=== PATIENT | female | born 1965 | race Caucasian/White ===

== ENCOUNTER 2020-04-02 11:04 | Day surgery (SDC) | payer OTHER, MEDICAID, SELFPAY ==
--- NOTE | 2020-04-02 | PATH_ITS ---
[facility] Accession Number: [id number] . 01 Material submitted: . rectum - RECTAL POLYP . 02 Diagnosis: Rectum, Polyp, Biopsy: Hyperplastic polyp. MRV 04/06/2020 1509 Local . 02 Electronically signed: . Lizet Sharif MD, Pathologist NPI- [id number] . 01 Gross description: . The specimen is received in formalin, labeled rectal polyp and consists of two walker-white fragments of soft tissue, measuring 0.5 x 0.4 x 0.2 cm in aggregate. The specimen is entirely submitted in cassette A1. ([id number]) /[facility] 04/03/2020 1528 Local . 02 Pathologist provided ICD-10: K63.5 . 02 CPT . 516322 Performed at: 01 [facility] [address] [id number] MD Enrique Greenwood MD Phone: [phone] Performed at: 02 [facility] [address] [address] [place], [place] [id number] MD Lizet Sharif MD Phone: [phone]
[2020-04-02 11:40] LABS: COVID19 -Nasal RAPID Negative (Negative)
[2020-04-02 13:11] VITALS: BP 134/85; PULSE 95; RESP 19; TEMP 35.8; O2SAT 95; BMI 49.1
[2020-04-02] MEDS: LACTATED RINGERS 1,000 ML 200 ML IV (13:21)
--- NOTE | 2020-04-02 13:48 | PM.HP.1 ---
History of Present Illness History of Present Illness Date Patient Seen: 04/02/20 Time Patient Seen: 13:48 Chief complaint: SDC Narrative: The patient presents for colorectal sreening. They have never had any previous examination for such. No personal or family history of colon cancer. On further history denies any recent gastrointestinal symptoms. No nausea, vomiting, abdominal pain, loss of appetite, unexplained weight loss, change in bowel habits, diarrhea, constipation, melena, hematochezia, or bright red blood per rectum. Patient History Medical History Diabetes (Acute) Morbid obesity (Acute) Surgical History Hx laparoscopic cholecystectomy (Acute) Family & Social History Social History: household members friend(s) Tobacco & Substance use: Smoking Status Former smoker alcohol intake former Substance Use Type does not use Meds Home Medications and Allergies Home Medications Medication Instructions Recorded Confirmed Type Ranitidine Hydrochloride 150 mg PO BID #0 12/31/11 04/02/20 History (RANITIDINE) atorvastatin 40 mg PO QPM 04/02/20 04/02/20 History gabapentin 1,600 mg PO BID 04/02/20 04/02/20 History insulin glargine [Lantus Solostar 27 unit SUBCUT QPM 04/02/20 04/02/20 History U-100 Insulin] metformin 1,000 mg PO BID 04/02/20 04/02/20 History omeprazole 20 mg PO DAILY 04/02/20 04/02/20 History quetiapine [Seroquel] 200 mg PO DAILY 04/02/20 04/02/20 History Allergies Allergy/AdvReac Type Severity Reaction Status Date / Time No Known Drug Allergies Allergy Verified 04/02/20 13:05 Review of Systems Review of Systems Narrative: A 10 point review of systems is negative except as noted in the HPI Exam Vital Signs (past 8 hours): - 04/02/20 13:11 Temperature 96.5 F L Pulse Rate 95 H Respiratory Rate 19 Blood Pressure 134/85 Pulse Oximetry 95 Oxygen Delivery Method Room Air Narrative Exam Narrative: General-no acute distress, morbidly obese female HEENT-moist mucous membranes, no scleral icterus Neck-supple, no lymphadenopathy Chest- non labored respirations, clear to auscultation bilaterally Cardiac-regular rate no peripheral edema Abdomen-soft, nontender, non distended Extremities-warm, well perfused Neurological-alert and oriented, no focal deficits Objective Labs Labs: Laboratory Results - last 24 hr 04/02/20 11:25 COVID-19 PCR Negative Assessment & Plan Assessment & Plan narrative: The patient requires colorectal screening and colonoscopy is recommended. Technical details were discussed. Risks, benefits, alternatives explained. Risks including but not limited to myocardial infarction, aspiration, bleeding, pain, missed lesion, incomplete examination, need for further radiographic studies, colonic perforation, and need for major abdominal surgery were discussed. All questions were answered to their satisfaction, and they are in agreement with this plan.
[2020-04-02] MEDS: MIDAZOLAM 5 MG/5 ML VIAL IV (14:14)
[2020-04-02] MEDS: fentaNYL 250 MCG/5 ML INJ IV (14:14)
[2020-04-02 14:28] VITALS: BP 149/85; PULSE 97; RESP 18; TEMP 36.1; O2SAT 92
--- NOTE | 2020-04-02 14:28 | PM.OP.ENDO ---
Operative Date/Time/Diagnoses Date of procedure: 04/02/20 Time of procedure: 14:29 Pre-op diagnosis: Screening colonoscopy Post-op diagnosis: same Procedure & Clinicians Study performed: Colonoscopy Same procedure as scheduled: Yes Indications: 54-year-old woman here for routine screening colonoscopy Surgeon: Roberto Carlos Field Procedure Notes SCOAP/Timeout: Performed Procedure in detail: Patient placed in left lateral recumbent position. Time out was performed. Procedural sedation was administered with Versed and Fentanyl. Examination began with a thorough inspection of the perianal area there was no evidence of fissures, fistulae, external hemorrhoids or cutaneous malignancy. The colonoscopy scope was then placed into the rectum the the lumen was insufflated with air. The scope was carefully advanced forward. Ultimately the cecum was intubated and confirmed by identification of the ileocecal valve, the appendiceal orifice and the confluence of the taenia. The scope was then slowly withdrawn examining colon thoroughly in all directions. In the rectum the rectal columns were identified and retroflexion of the scope was performed for inspection of the distal rectum and anal canal. The colonoscopy was notable for the followin. Quality of the preparation-fair 2. 5 mm rectal polyp removed with biopsy forceps Scope withdrawal time: 6 Sedation minutes: 30 Specimen(s): none sent Complications: none Impression: Polyp Post-procedure Recommendations: Colonscopy in 5 years Disposition: same day surgery
[2020-04-02 14:33] VITALS: BP 115/79; PULSE 98; RESP 22; O2SAT 93
[2020-04-02 14:38] VITALS: BP 129/80; PULSE 98; RESP 20; O2SAT 91
[2020-04-02 14:43] VITALS: BP 128/70; PULSE 94; RESP 16; TEMP 36.3; O2SAT 92
[2020-04-02 15:00] VITALS: BP 113/86; PULSE 93; RESP 20; TEMP 36.6; O2SAT 94
== END 2020-04-02 15:11 | disposition home or self-care (01) ==
PROVIDERS: PCP Registered Nurse; Referring Provider Surgery; Visit Provider Surgery
PROC: 0DJD8ZZ Inspection of Lower Intestinal Tract, Via Natural or Artificial Opening Endoscopic (ICD-10-PCS; CPT 45378; principal; 2020-04-02 13:45)
DX: Z12.11 Encounter for screening for malignant neoplasm of colon (principal); E11.9 Type 2 diabetes mellitus without complications; E66.01 Morbid (severe) obesity due to excess calories; Z11.59 Encounter for screening for other viral diseases; K63.5 Polyp of colon
CPT/HCPCS: 45380; 87635; 99152; 99153; J2250; J3010

== ENCOUNTER → 2023-07-25 10:09 | Outpatient (CLI) | payer OTHER, MEDICAID, SELFPAY ==
--- NOTE | 2023-07-25 | DI.RAD.S_ITS ---
PROCEDURE: FL JOINT INJECTION LARGE LT INDICATIONS: Unilateral primary osteoarthritis, left hip COMPARISON: [facility], CR, XR PELVIS WITH LATERAL HIP LEFT, 07/28/2021, 17:11. [facility], CR, XR KNEE 1 OR 2 VIEWS RIGHT, 11/17/2021, 12:26. TECHNIQUE: The indications, alternatives, benefits, risks, and complications of the procedure were explained to the patient. Written informed consent was obtained and placed in the chart. The patient was placed in an appropriate position on the fluoroscopy table, and a site was chosen for percutaneous access under fluoroscopic guidance. The site was prepped and draped in a sterile fashion. Local anesthetic was administered using a 1% lidocaine solution. A hypodermic or spinal needle was then used to access the symptomatic joint. Intra-articular location of the needle tip was confirmed by injecting a small amount of contrast, followed by steroid administration. The needle was then withdrawn, and a bandage applied to the puncture site. FINDINGS: Joint injected: Left hip Medications injected: 4 mL of 40 mg/mL Kenalog and 0.5% Ropivacaine mixture. Patient's pain before injection: 7 out of 10. Patient's pain after injection: 0 out of 10. Complications: None. IMPRESSION: Successful fluoroscopically guided administration of steroid and anaesthetic solution into the left hip joint. Dictated by: Enoc Kim M.D. on 07/25/2023 at 12:44 Approved by: Enoc Kim M.D. on 07/25/2023 at 12:45
[2023-07-25] MEDS: LIDOCAINE 1% 20 ML INJ (11:52)
[2023-07-25] MEDS: ROPIVACAINE 0.5% PF 5 MG/ML 20ML VIAL 20 ML INJ (11:52)
[2023-07-25] MEDS: TRIAMCINOLONE 40 MG/ML VIAL INTRA-ARTI (11:52)
== END ==
LOC: RAD 10:09
PROVIDERS: PCP Registered Nurse; Referring Provider Physician Assistant Surgical; Visit Provider Physician Assistant Surgical
DX: M16.12 Unilateral primary osteoarthritis, left hip (principal)
CPT/HCPCS: 20610; 77002

== ENCOUNTER 2024-03-27 11:43 | Emergency (ER) | payer OTHER, MEDICAID, SELFPAY ==
[2024-03-27 12:01] VITALS: BP 129/69; PULSE 78; RESP 16; TEMP 36.7; O2SAT 100; BMI 42.3
--- NOTE | 2024-03-27 12:03 | PC.NURSE ---
Pt reports red bumps on chin. Pt states she has been stressed lately and eating lots of chocolate and coffee. Pt reports shingles outbreak last month and was resolved w/ rx medications. Pt asking if she can have refill of medications to help with her current outbreak. Pt states the wounds burn and itch. No oral, mucous membrane or eye involvement noted. Respirations regular and unlabored.
--- NOTE | 2024-03-27 12:09 | ED.SKABFB ---
HPI - Skin/Abscess/Foreign Bdy <Lizet Katz PA-C - Last Filed: 03/27/24 12:14> General Chief complaint: Skin/Abscess/Foreign Body Stated complaint: shingles outbreak Time Seen by Provider: 03/27/24 11:57 History of Present Illness HPI narrative: Patient is a pleasant 58-year-old female presents to the emergency department today complaining of reactivation shingles. Patient was seen at 1 of the local emergency room department on 02/13/2024, she was diagnosed with shingles on the left side of her chest underneath her breast. She was prescribed multiple medications, she took the medications to completion and the shingles resolved. She now presents to the emergency department with a reactivation of shingles on the left side of her chin. It has been ongoing for several days. She is unable to get into her primary care doctor. The area is red, multiple small vesicles that have now opened up and drained, the pain is burning, itchy, extremely painful. Currently along the left side of her lower jaw, no eye involvement, no other physical complaints. Patient is here requesting refill of the medications that she received when she initially had her 1st episode of shingles outbreak on 02/13/2024. Related Data Home Medications Medication Instructions Recorded Confirmed Ranitidine Hydrochloride 150 mg PO BID ##0 12/31/11 04/02/20 (RANITIDINE) atorvastatin 20 mg tablet 40 mg PO QPM 04/02/20 04/02/20 gabapentin 800 mg tablet 1,600 mg PO BID 04/02/20 04/02/20 insulin glargine 100 unit/mL (3 27 unit SUBCUT QPM 04/02/20 04/02/20 mL) subcutaneous pen (Lantus Solostar U-100 Insulin) metformin 500 mg tablet 1,000 mg PO BID 04/02/20 04/02/20 omeprazole 20 mg capsule,delayed 20 mg PO DAILY 04/02/20 04/02/20 release quetiapine 200 mg tablet (Seroquel) 200 mg PO DAILY 04/02/20 04/02/20 Previous Rx's Medication Instructions Recorded hydrocodone 5 mg-acetaminophen 325 1 tab PO Q6H PRN pain #10 tabs 03/27/24 mg tablet prednisone 20 mg tablet See Rx Instructions .Route 03/27/24 .COMPLEX #20 tabs valacyclovir 1 gram tablet 1,000 mg PO TID #21 tabs 03/27/24 (Valtrex) Allergies Allergy/AdvReac Type Severity Reaction Status Date / Time No Known Drug Allergies Allergy Verified 03/27/24 12:01 Review of Systems <Lizet Katz PA-C - Last Filed: 03/27/24 12:14> Review of Systems Narrative: Negative except as above Allergic/Immunologic Comments: Patient is having a reactivation shingles they are now on the left lower jaw, no ocular involvement. Patient History <Lizet Katz PA-C - Last Filed: 03/27/24 12:14> Medical History Diabetes Morbid obesity Surgical History Hx laparoscopic cholecystectomy Social History household members: friend(s) Smoking Status: Former smoker alcohol intake: former Smoking Status: Former smoker Substance Use Type: does not use Exam <Lizet Katz PA-C - Last Filed: 03/27/24 12:14> Initial Vital Signs Initial Vital Signs: Vital Signs Temperature 98.1 F 03/27/24 12:01 Pulse Rate 78 03/27/24 12:01 Respiratory Rate 16 03/27/24 12:01 Blood Pressure 129/69 03/27/24 12:01 Pulse Oximetry 100 03/27/24 12:01 Oxygen Delivery Method Room Air 03/27/24 12:01 Reviewed Const General: cooperative, healthy appearing, comfortable, well developed, well groomed, No acute distress, No in distress and No anxious Nutritional Appearance: obese Eyes General: Yes appearance normal, both eyes and all related structures Sclera: sclerae normal Cornea: corneas normal Pupils: PERRL EOM: EOM intact bilaterally Skin Other: Patient has not area on the lower left jaw, red, irritated, she currently does not have any vesicles, she stated that she had vesicles, that had serosanguineous yellow fluid in them, she is itched them, they now are no longer there, she has redness and vesicle like areas up the left jaw, no eye involvement, no areas that look like they are infected or have surrounding cellulitis. She is got some minor areas on the midline of her chin. Neuro Other: Cranial nerves are grossly intact, speech is intact, cognition is intact, gait is intact. Extrem Other: Range of motion, strength, pulses, cap refill preserved in the upper and lower extremities. Psych Other: Appearance, mental status, speech, movement, mood, affect, attitude, thought process, thought content, judgment are all within normal limits. <Leticia Blanchard MD - Last Filed: 03/28/24 07:16> Initial Vital Signs Initial Vital Signs: Vital Signs Temperature 98.1 F 03/27/24 12:01 Pulse Rate 78 03/27/24 12:01 Respiratory Rate 16 03/27/24 12:01 Blood Pressure 129/69 03/27/24 12:01 Pulse Oximetry 100 03/27/24 12:01 Oxygen Delivery Method Room Air 03/27/24 12:01 Scores <Lizet Katz PA-C - Last Filed: 03/27/24 12:14> GCS Citation: 15 Course <Lizet Katz PA-C - Last Filed: 03/27/24 12:14> Vital Signs Vital signs: Vital Signs - 8 hr 03/27/24 12:01 Temperature 98.1 F Pulse Rate 78 Respiratory Rate 16 Blood Pressure 129/69 Pulse Oximetry 100 Oxygen Delivery Method Room Air <Leticia Blanchard MD - Last Filed: 03/28/24 07:16> Vital Signs Vital signs: Vital Signs - 8 hr 03/27/24 12:01 Temperature 98.1 F Pulse Rate 78 Respiratory Rate 16 Blood Pressure 129/69 Pulse Oximetry 100 Oxygen Delivery Method Room Air MDM - Skin/Abscess/Foreign Bdy <Lizet Katz PA-C - Last Filed: 03/27/24 12:14> MDM Narrative Medical decision making narrative: 58-year-old female previous history of shingles, reactivation of her shingles, here requesting a refill of the medications that she was prescribed on 02/13/2024. Initially her shingles were on the left chest underneath her left breast. The shingles she now has oz on the left side of her jaw. No ocular involvement. Ongoing for the past several days. Describes it as a sharp burning itchy severe pain to the left outer facial area. No signs of cellulitis or infection. No other further complaints. Medications are refilled and sent to her pharmacy. Supportive therapy, education given about shingles. Differential diagnosis; reactivation of the shingles now on her face. Discharge Plan Departure Patient Disposition: Home Clinical Impression: Shingles outbreak Qualifiers: Herpes zoster complications: without complications Qualified Code(s): B02.9 - Zoster without complications Activity Restrictions/Additional Instructions: Stay away from chocolate Stay away from coffee Please try not to scratch her face or touch her face Keep her hands clean Take the medications as prescribed Consider the shingles shot you need to be well healed from the shingles outbreak there currently having Plenty of rest Balanced diet Plenty of water Consider B12 Zinc Magnesium D3 Consider lysine helps with this do not take too much of this it can cause kidney stones do not take more than 1500 mg a day and drink plenty plenty of water if you decide to take this amino acid Follow up with her primary care doctor please make an appointment Prescriptions: New prednisone 20 mg tablet See Rx Instructions .ROUTE .COMPLEX Qty: 20 0RF Rx Instructions: 60 mg daily for 4 days then 40 mg for 3 days, then 20 mg for 2 days valacyclovir [Valtrex] 1 gram tablet 1,000 mg PO TID Qty: 21 0RF hydrocodone-acetaminophen 5-325 mg tablet 1 tab PO Q6H PRN (Reason: pain) Qty: 10 0RF No Action Ranitidine Hydrochloride (RANITIDINE) 150 mg PO BID Qty: 0 metformin 500 mg Tablet 1,000 mg PO BID atorvastatin 20 mg Tablet 40 mg PO QPM quetiapine [Seroquel] 200 mg Tablet 200 mg PO DAILY Rx Instructions: 300mg at night gabapentin 800 mg Tablet 1,600 mg PO BID Lantus Solostar U-100 Insulin 100 unit/mL (3 mL) Insulin Pen 27 unit SUBCUT QPM omeprazole 20 mg Capsule,Delayed Release(Dr/Ec) 20 mg PO DAILY Referrals: Yessi Horowitz FNP-C [Primary Care Provider] - Stand Alone Forms: Patient Portal/API ED Sign-out <Leticia Blanchard MD - Last Filed: 03/28/24 07:16> Cosign ED Attending Cosignature Attestation: I was immediately available in the department for consultation throughout this patient's visit. Leticia Blanchard MD
[2024-03-27 12:17] VITALS: RESP 16
== END 2024-03-27 12:17 | disposition home or self-care (01) ==
PROVIDERS: Emergency Provider Physician Assistant; PCP Registered Nurse
DX: B02.9 Zoster without complications (principal)
CPT/HCPCS: 99281

== ENCOUNTER 2024-04-14 19:14 | Emergency (ER) | payer OTHER, MEDICAID, SELFPAY ==
[2024-04-14] VITALS (9 sets, daily range): BP systolic 110–135; BP diastolic 59–78; PULSE 100–114; RESP 18–22; TEMP 37.8–38.2; O2SAT 94–96; BMI 42.3
--- NOTE | 2024-04-14 19:54 | ED_ITS ---
HPI - Headache General Chief Complaint: Upper Respiratory Symptoms Stated Complaint: shingles in throat Time Seen by Provider: 04/14/24 19:48 Mode of arrival: Wheelchair History of Present Illness HPI Narrative: Patient is a 58-year-old female history of hyperlipidemia hypertension comes into the ED from home for flu-like symptoms. She states that she has been suffering from multiple outbreaks of shingles over the past several months. States that she just completed her last dose of valacyclovir. States that she is having persistent sore throat also complaining of headache and muscle pains. She denies any visual disturbances chest pain shortness breath fever chills nausea vomiting abdominal pain or any other GI/ symptoms time. States that she believes she still has some lesions within her oropharynx however states that the lesions on her arms and face have improved/gone away. Related Data Home Medications Medication Instructions Recorded Confirmed Ranitidine Hydrochloride 150 mg PO BID ##0 12/31/11 04/02/20 (RANITIDINE) atorvastatin 20 mg tablet 40 mg PO QPM 04/02/20 04/02/20 gabapentin 800 mg tablet 1,600 mg PO BID 04/02/20 04/02/20 insulin glargine 100 unit/mL (3 27 unit SUBCUT QPM 04/02/20 04/02/20 mL) subcutaneous pen (Lantus Solostar U-100 Insulin) metformin 500 mg tablet 1,000 mg PO BID 04/02/20 04/02/20 omeprazole 20 mg capsule,delayed 20 mg PO DAILY 04/02/20 04/02/20 release quetiapine 200 mg tablet (Seroquel) 200 mg PO DAILY 04/02/20 04/02/20 Previous Rx's Medication Instructions Recorded hydrocodone 5 mg-acetaminophen 325 1 tab PO Q6H PRN pain #10 tabs 03/27/24 mg tablet prednisone 20 mg tablet See Rx Instructions .Route 03/27/24 .COMPLEX #20 tabs valacyclovir 1 gram tablet 1,000 mg PO TID #21 tabs 03/27/24 (Valtrex) amoxicillin 875 mg-potassium 1 tab PO BID 10 days #20 tabs 04/14/24 clavulanate 125 mg tablet valacyclovir 1 gram tablet 1,000 mg PO TID 7 days #21 tabs 04/14/24 Allergies Allergy/AdvReac Type Severity Reaction Status Date / Time No Known Drug Allergies Allergy Verified 03/27/24 12:01 Review of Systems Review of Systems Narrative: General: Positive myalgias, Denies fever, chills, weight loss HEENT: Positive sore throat, Denies headache, eye drainage, eye irritation, head trauma, voice change Cardiovascular: Denies any chest pain, palpitations, shortness of breath, tachycardia Respiratory: Denies any shortness of breath, cough, wheeze, stridor GI/: Denies any abdominal pain, nausea, vomiting, diarrhea, bright red blood per rectum, melanotic stools, urinary frequency, urinary retention, dysuria, hematuria MSK: Denies any joint pain, muscle pains, swelling Skin: Denies any rashes, lesions, discoloration Neuro: Denies any headache, lightheadedness, dizziness, fainting, weakness Psych: Denies SI/HI Patient History Medical History (Updated 04/14/24 @ 21:22 by Jose Maria Barksdale DO) Diabetes Morbid obesity Surgical History Hx laparoscopic cholecystectomy Social History household members: friend(s) Smoking Status: Former smoker alcohol intake: former Smoking Status: Former smoker Substance Use Type: does not use Exam Initial Vital Signs Initial Vital Signs: Vital Signs Pulse Rate 114 H 04/14/24 19:23 Pulse Oximetry 94 04/14/24 19:23 Course Orders Ordered: ED Orders 04/14/24 20:14 BMP [Basic Metabolic Panel] Stat CBC No Diff [Complete Blood Count NO DIFF] Stat 04/14/24 20:22 Covid-19 + FLU A/B + RSV - PCR Stat Strep Grp A by PCR Rapid Stat Discontinued Medications Acetaminophen (Acetaminophen 325 Mg Tablet) 650 mg PO NOW ONE Stop: 04/14/24 19:57 Last Admin: 04/14/24 20:07 Dose: 650 mg Documented By: ARTUR Amoxicillin/Clavulanate Potassium (Amoxicillin/Clav 875/125 Mg) 1 tab PO NOW ONE Stop: 04/14/24 20:44 Last Admin: 04/14/24 20:47 Dose: 1 tab Documented By: ARTRU Diphenhydramine HCl (Diphenhydramine 50 Mg/Ml Vial) 25 mg IV NOW ONE Stop: 04/14/24 19:56 Last Admin: 04/14/24 20:08 Dose: 25 mg Documented By: ARTUR Sodium Chloride (Normal Saline 0.9%) 1,000 mls @ 1,000 mls/hr IV BOLUS ONE Stop: 04/14/24 20:55 Last Admin: 04/14/24 20:10 Dose: 1,000 mls/hr Documented By: ARTUR Ketorolac Tromethamine (Ketorolac 30 Mg/Ml Vial) 15 mg IV NOW ONE Stop: 04/14/24 19:56 Last Admin: 04/14/24 20:09 Dose: 15 mg Documented By: ARTUR Metoclopramide HCl (Metoclopramide 10 Mg/2 Ml Inj) 10 mg IV NOW ONE Stop: 04/14/24 19:56 Last Admin: 04/14/24 20:11 Dose: 10 mg Documented By: ARTUR Vital Signs Vital signs: Vital Signs - 8 hr 04/14/24 19:23 04/14/24 19:24 04/14/24 19:24 Temperature Pulse Rate 114 H 114 H Respiratory Rate Blood Pressure 135/78 Pulse Oximetry 94 94 Oxygen Delivery Method 04/14/24 19:30 04/14/24 19:30 04/14/24 19:32 Temperature 100.7 F H Pulse Rate 110 H 114 H Respiratory Rate 22 Blood Pressure 112/59 L 135/78 Pulse Oximetry 94 94 Oxygen Delivery Method Room Air 04/14/24 20:31 04/14/24 20:32 04/14/24 20:32 Temperature Pulse Rate 109 H 107 H Respiratory Rate Blood Pressure 125/62 Pulse Oximetry 95 95 Oxygen Delivery Method Room Air MDM - Headache Differential Diagnosis Differential diagnosis: Likely other (Tension type headache, strep throat, shingles, electrolyte abnormality) Lab Data 04/14/24 20:14 04/14/24 20:14 Labs: Lab Results 04/14/24 04/14/24 Range/Units 20:14 20:22 WBC 9.9 (4.5-11.0) X10^3/uL RBC 4.07 (4.0-5.2) X10^6/uL Hgb 11.8 L (12.0-16.0) g/dL Hct 35.4 L (36-46) % MCV 87.0 (80-100) fL MCH 29.0 (26-34) PG MCHC 33.3 (30-36) % RDW 15.9 H (11.6-14.8) % Plt Count 125 L (150-400) X10^3/uL Sodium 128 L (137-145) mmol/L Potassium 4.4 (3.4-5.1) mmol/L Chloride 94 L (98-107) mmol/L Carbon Dioxide 26 (22-32) mmol/L BUN 18 H (7-17) mg/dL Creatinine 0.70 (0.52-1.04) mg/dL Estimated GFR > 60 (>60) mL/min BUN/Creatinine Ratio 25.7 H (6-22) Glucose 367 H (70-100) mg/dL Calcium 9.1 (8.4-10.2) mg/dL SARS-CoV-2 (PCR) Negative (Negative) Influenza A (RT-PCR) Flu a negative (NEGATIVE) Influenza B (RT-PCR) Flu b negative (NEGATIVE) RSV (PCR) Negative (Negative) Group A Strep (PCR) Positive H (Negative) MDM Narrative Medical decision making narrative: Patient is a 58-year-old female history of hypertension hyperlipidemia recent shingles outbreak presents to the ED for multiple complaints. She states that she feels like her shingles rash still has not gotten any better, states that she feels like it is still in the back of her throat, states that she is also having worsening sore throat. Muscle stating that she is having intermittent headaches associated with this pain. But denies any focal deficits denies any visual disturbances. Patient lab work unremarkable here she was noted to be febrile which she defervesce after given medication here, strep throat positive 1st dose of medications was given here sent home with remaining antibiotics. She is also requesting additional doses of her valacyclovir, because she believes her shingles still have not resolved therefore will prescribe her a prescription for this. I instructed her to follow up with primary care doctor and dermatology in an outpatient setting. She verbalized understanding of this she was given strict return precautions she is safe for discharge home with outpatient follow up Discharge Plan Departure Patient Disposition: Home Clinical Impression: Strep throat Activity Restrictions/Additional Instructions: Please read the discharge instructions sheet carefully and bring all papers to all doctor follow-up visits, as it may contain information that your doctor may want to see. Disease processes change and evolve, if your symptoms worsen or if you develop any new symptoms that are concerning to you please return for evaluation. Your evaluation today does not show any evidence of any life- threatening/serious illnesses requiring admission to the hospital or surgery. Please follow-up with your doctor for re-evaluation in approximately 1 day. Seek immediate medical attention for any worrisome symptoms. Prescriptions: New amoxicillin-pot clavulanate 875-125 mg tablet 1 tab PO BID 10 Days Qty: 20 0RF valacyclovir 1 gram tablet 1,000 mg PO TID 7 Days Qty: 21 0RF No Action Ranitidine Hydrochloride (RANITIDINE) 150 mg PO BID Qty: 0 prednisone 20 mg tablet See Rx Instructions .ROUTE .COMPLEX Qty: 20 0RF Rx Instructions: 60 mg daily for 4 days then 40 mg for 3 days, then 20 mg for 2 days valacyclovir [Valtrex] 1 gram tablet 1,000 mg PO TID Qty: 21 0RF hydrocodone-acetaminophen 5-325 mg tablet 1 tab PO Q6H PRN (Reason: pain) Qty: 10 0RF metformin 500 mg Tablet 1,000 mg PO BID atorvastatin 20 mg Tablet 40 mg PO QPM quetiapine [Seroquel] 200 mg Tablet 200 mg PO DAILY Rx Instructions: 300mg at night gabapentin 800 mg Tablet 1,600 mg PO BID Lantus Solostar U-100 Insulin 100 unit/mL (3 mL) Insulin Pen 27 unit SUBCUT QPM omeprazole 20 mg Capsule,Delayed Release(Dr/Ec) 20 mg PO DAILY Referrals: Yessi Horowitz FNP-C [Primary Care Provider] - Stand Alone Forms: Patient Portal/API/Survey
[2024-04-14] MEDS: ACETAMINOPHEN 325 MG TABLET 650 MG PO (20:07)
[2024-04-14] MEDS: diphenhydrAMINE 50 MG/ML VIAL 25 MG IV (20:08)
[2024-04-14] MEDS: KETOROLAC 30 MG/ML VIAL 15 MG IV (20:09)
[2024-04-14] MEDS: SODIUM CHLORIDE 0.9% 1,000 ML 1000 ML IV (20:10)
[2024-04-14] MEDS: METOCLOPRAMIDE 10 MG/2 ML INJ IV (20:11)
[2024-04-14 20:23] LABS: Hematocrit 35.4 % (36-46); Hemoglobin 11.8 g/dL (12.0-16.0); Mean Corpuscular HGB Conc 33.3 % (30-36); Platelet Count 125 X10^3/uL (150-400); Red Blood Cell Count 4.07 X10^6/uL (4.0-5.2); Red Cell Distribution Width 15.9 % (11.6-14.8); White Blood Cell Count 9.9 X10^3/uL (4.5-11.0)
[2024-04-14 20:31] LABS: BUN Creatinine Ratio 25.7 (6-22); Blood Urea Nitrogen 18 mg/dL (7-17); Calcium 9.1 mg/dL (8.4-10.2); Carbon Dioxide 26 mmol/L (22-32); Chloride 94 mmol/L (98-107); Estimated Glomerular Filt Rate > 60 mL/min (>60); Glucose 367 mg/dL (70-100); HEMOLYSIS < 15 (0-50); Potassium 4.4 mmol/L (3.4-5.1); Sodium 128 mmol/L (137-145)
[2024-04-14 20:34] LABS: Strep Grp A by PCR Rapid Positive (Negative)
[2024-04-14] MEDS: AMOXICILLIN/CLAV 875/125 MG 1 TAB PO (20:47)
[2024-04-14 21:07] LABS: Influenza A - CEPHEID Flu A NEGATIVE (NEGATIVE); Influenza B - CEPHEID Flu B NEGATIVE (NEGATIVE); Respiratory Syncytial Virus Negative (Negative)
[2024-04-14 21:14] LABS: COVID-19 CEPHEID 4-PLEX PCR Negative (Negative)
== END 2024-04-14 21:33 | disposition home or self-care (01) ==
PROVIDERS: Emergency Provider Student in an Organized Health Care Education/Training Program; PCP Registered Nurse
DX: J02.0 Streptococcal pharyngitis (principal); R51.9 Headache, unspecified; Z11.52 Encounter for screening for COVID-19
CPT/HCPCS: 0241U; 36415; 80048; 85027; 87651; 96361; 96374; 96375; 99284; J1200; J1885; J2765

== ENCOUNTER 2024-06-13 11:55 | Emergency (ER) | payer OTHER, SELFPAY ==
[2024-06-13 12:16] VITALS: BP 159/110; PULSE 93; RESP 18; TEMP 36.9; O2SAT 95; BMI 42.5
--- NOTE | 2024-06-13 12:32 | ED.SKABFB ---
HPI - Skin/Abscess/Foreign Bdy <Jennifer Pack PA-C - Last Filed: 06/13/24 14:24> General Chief complaint: Skin/Abscess/Foreign Body Stated complaint: neck px, body rash Time Seen by Provider: 06/13/24 12:31 Source: patient Mode of arrival: Ambulatory Limitations: no limitations History of Present Illness HPI narrative: 58-year-old female with a history of type 2 diabetes presents this afternoon with some painful lesions on her chin, she 1st noticed them a couple of days ago on the right side and now there on the left side. She states that they burn but also itch. She has reporting no recent fever, chills, or upper respiratory infection symptoms. She states that she has had shingles in the past and this feels similar. Last treated here on March 27, 2024. She reports no other areas of affected skin. She has been using antibacterial dial soap and applied calamine lotion. She reports no lesions or pain in the mouth, she states she has a history of some ?nerve damage and some chronic pain pointing to her face and scalp, she takes gabapentin daily for this along with insulin, metformin, Seroquel, last took Valtrex May 2024 from her primary care. She denies any known history of HSV, cold sores or any genital lesions. She does report no changes to her personal hygiene products however she has a dog that has ?dermatitis in his being treated with some type of medication?. All other systems are reviewed and are negative. Noted elevated blood pressure reading, review of systems is negative for any chest pain, shortness of breath, swelling, palpitations or any other complaints. Related Data Home Medications Medication Instructions Recorded Confirmed Ranitidine Hydrochloride 150 mg PO BID ##0 12/31/11 04/02/20 (RANITIDINE) atorvastatin 20 mg tablet 40 mg PO QPM 04/02/20 04/02/20 gabapentin 800 mg tablet 1,600 mg PO BID 04/02/20 04/02/20 insulin glargine 100 unit/mL (3 27 unit SUBCUT QPM 04/02/20 04/02/20 mL) subcutaneous pen (Lantus Solostar U-100 Insulin) metformin 500 mg tablet 1,000 mg PO BID 04/02/20 04/02/20 omeprazole 20 mg capsule,delayed 20 mg PO DAILY 04/02/20 04/02/20 release quetiapine 200 mg tablet (Seroquel) 200 mg PO DAILY 04/02/20 04/02/20 Previous Rx's Medication Instructions Recorded hydrocodone 5 mg-acetaminophen 325 1 tab PO Q6H PRN pain #10 tabs 03/27/24 mg tablet prednisone 20 mg tablet See Rx Instructions .Route 03/27/24 .COMPLEX #20 tabs valacyclovir 1 gram tablet 1,000 mg PO TID #21 tabs 03/27/24 (Valtrex) doxycycline hyclate 100 mg capsule 100 mg PO BID #14 caps 06/13/24 ibuprofen 200 mg tablet 400 mg (2 x 200 mg) PO Q8H #20 tabs 06/13/24 mupirocin calcium 2 % topical cream 1 applic topical BID #15 grams 06/13/24 prednisone 20 mg tablet 40 mg (2 x 20 mg) PO DAILY #10 tabs 06/13/24 valacyclovir 1 gram tablet 1,000 mg PO TID #21 tabs 06/13/24 (Valtrex) Allergies Allergy/AdvReac Type Severity Reaction Status Date / Time No Known Drug Allergies Allergy Verified 06/13/24 12:20 Review of Systems <Jennifer Pack PA-C - Last Filed: 06/13/24 14:24> Review of Systems Narrative: All other systems are reviewed and are negative. Patient History <Jennifer Pack PA-C - Last Filed: 06/13/24 14:24> Medical History (Updated 06/13/24 @ 13:07 by Jennifer Pack PA-C) Diabetes Morbid obesity Surgical History Hx laparoscopic cholecystectomy Social History household members: friend(s) Smoking Status: Former smoker alcohol intake: former Smoking Status: Former smoker Exam <Jennifer Pack PA-C - Last Filed: 06/13/24 14:24> Initial Vital Signs Initial Vital Signs: Vital Signs Temperature 98.5 F 06/13/24 12:16 Pulse Rate 93 H 06/13/24 12:16 Respiratory Rate 18 06/13/24 12:16 Blood Pressure 159/110 H 06/13/24 12:16 Pulse Oximetry 95 06/13/24 12:16 Oxygen Delivery Method Room Air 06/13/24 12:16 Vital signs reviewed and are abnormal she has an elevated blood pressure reading, no known diagnosis of hypertension. She states she is ?stressed out as she has not had her Seroquel yet. Const General: comfortable and No acute distress [facility] Head: normocephalic, atraumatic, hematoma, No scalp lesion and No temporal artery tenderness Ears: external ears normal, TM's normal bilaterally, EAC's normal, mastoids normal and no periauricular adenopathy Nose: external nose normal and nares normal Face and sinus: sinuses nontender, face symmetric and no sinus tenderness Mouth: oral mucosae normal and tongue normal Teeth and gingiva: poor dentition (Dentition is absent) Throat: posterior oropharynx normal, uvula midline and tonsils absent Eyes General: Yes appearance normal, both eyes and all related structures Other: Declined fluorescein examination. Neck Neck: normal visual inspection, full ROM, no meningeal signs and supple Chest Chest: normal inspection of the chest Resp Effort & Inspection: normal respiratory effort and able to speak in complete sentences Auscultation: clear to auscultation bilaterally, no rales, no rhonchi and no wheezes Cardio Rate: regular rate Rhythm: regular rhythm GI Palpation: no hepatosplenomegaly Skin Other: 9-10 or so papular lesions on the chin, nothing involving the vermilion border, largest is 2 mm, 2 has been unroofed and have a dry scab formation, there is no evidence of any pus, there is no fluid no signs of any vesicles, no pattern, they do cross the midline. Otherwise the face is clear. Oral tissues are clear. She has a little bit of warmth in the preauricular area bilaterally but there is no evidence of any adenopathy, full range of motion of the neck, there are no lesions of the scalp. Nontender scalp exam. Neuro Cranial Nerves: CN's II-XI intact bilaterally and PERRL <Peggy Phillip, - Last Filed: 06/14/24 07:33> Initial Vital Signs Initial Vital Signs: Vital Signs Temperature 98.5 F 06/13/24 12:16 Pulse Rate 93 H 06/13/24 12:16 Respiratory Rate 18 06/13/24 12:16 Blood Pressure 159/110 H 06/13/24 12:16 Pulse Oximetry 95 01/09/25 12:16 Oxygen Delivery Method Room Air 06/13/24 12:16 Course <Jennifer Pack PA-C - Last Filed: 06/13/24 14:24> Orders Ordered: ED Orders 06/13/24 12:43 Wound Culture and Gram Stain Stat 06/13/24 12:45 HSV 1/2 DNA PCR SWAB or BLOOD Stat Varicella Zoster PCR Stat Vital Signs Vital signs: Vital Signs - 8 hr 06/13/24 12:16 06/13/24 13:23 Temperature 98.5 F Pulse Rate 93 H 90 Respiratory Rate 18 14 Blood Pressure 159/110 H 165/82 H Pulse Oximetry 95 95 Oxygen Delivery Method Room Air Room Air <Peggy Phillip DO - Last Filed: 06/14/24 07:33> Orders Ordered: ED Orders 06/13/24 12:43 Wound Culture and Gram Stain Stat 06/13/24 12:45 HSV 1/2 DNA PCR SWAB or BLOOD Stat Varicella Zoster PCR Stat Vital Signs Vital signs: Vital Signs - 8 hr 06/13/24 12:16 06/13/24 13:23 Temperature 98.5 F Pulse Rate 93 H 90 Respiratory Rate 18 14 Blood Pressure 159/110 H 165/82 H Pulse Oximetry 95 95 Oxygen Delivery Method Room Air Room Air MDM - Skin/Abscess/Foreign Bdy <Jennifer Pack PA-C - Last Filed: 06/13/24 14:24> Lab Data Lab results narrative: Gram stain and wound culture are sent to the lab as well as viral cultures to look for HSV and V ZV. These are both pending. MDM Narrative Medical decision making narrative: Clinical exam shows about 9-10 papular lesions on the chin area bilaterally with no particular pattern. Appears that she has been scratching them and 2 of them have scab formation as they were quite raw but there is no clinical findings to suggest cellulitis. There is no swelling, there is no heat to the area. There is no involvement of the vermilion border, oral tissues are pink with no lesions, there were no lesions in the ear canal, scalp was also clear. Neurologically she is grossly intact. She has a longstanding history of shingles and has been treated with prednisone and Valtrex, she just completed a course of Valtrex in May. I have opted to cover her for likely bacterial infection possibly staph with an oral course of doxycycline as well as topical mupirocin. I have also at her request prescribed her prednisone but with hesitancy as she is a diabetic and I advised her that this can increase her blood sugars. She states it is the only medication that helps her pain, I have opted for a prednisone burst rather than a lengthy taper. She was given another prescription for Valtrex to cover her for shingles which she may start. At the time of discharge she requested an [id number] prescription for ibuprofen because she states she is unable to afford this medication. We discussed concurrent use of anti-inflammatories as well as steroids and the increased risk of bleeding so to police use caution, I recommend acetaminophen for pain, she already takes gabapentin. I have asked her to follow up with her primary care provider obviously she may return to the emergency department she develops any new worrisome symptoms. She declined fluorescein examination although she has not having any eye complaints I am hopeful there is no ocular involvement, there was nothing to suggest [place], she had no adenopathy on examination or meningeal signs, no lesions in the scalp. Her skin otherwise was within normal limits there were no other lesions identified. No edema. At 1 point the patient advised that she needed to go because she had an appointment at 2:00 p.m. and that she needed to be out of the emergency department within 1 hour. She did remain and completed her evaluation and obtained her prescriptions and discharge summary. She endorsed increased stress and has not had her Seroquel yet today because ?she is driving?. She was noted to have an elevated blood pressure reading today she states she has no hypertension I have asked her to rechecked this with her PCP obviously stress and pain can cause this but undiagnosed hypertension is something to consider as well. She states that her blood pressure is always fine. Discharge Plan Departure Patient Disposition: Home Clinical Impression: Skin papules, generalized, Elevated blood pressure reading Instructions: DI for Wound Infection Activity Restrictions/Additional Instructions: Your wound swab and viral swabs are pending, I have opted to cover you for both bacterial infection and possible shingles. There is an antibiotic I would like you to start as well as a topical cream, I have prescribed her prednisone in a different format it has a little shorter but it is very potent and you should get some relief. Regular soap and water cleanse, please do follow up with your primary care provider, I think he would benefit from a dermatologic evaluation as this is recurrent. If you have any worsening pain, develop any fever, any new lesions, or any new worrisome symptoms do not hesitate to return to the emergency department. Use good handwashing, calamine is okay but I would like you to use the antibacterial prescription cream more so as prescribed. Warm compresses might be helpful along your neck. Tylenol or ibuprofen for pain, along with your regular gabapentin. Your blood pressure was elevated today I would like you to have this rechecked at your doctor, you stated that you have not had your Seroquel and that you were stressed which certainly could be the cause but let us make sure it was well controlled. Prescriptions: New doxycycline hyclate 100 mg capsule 100 mg PO BID Qty: 14 0RF mupirocin calcium 2 % cream 1 applic topical BID Qty: 15 0RF prednisone 20 mg tablet 40 mg PO DAILY Qty: 10 0RF valacyclovir [Valtrex] 1 gram tablet 1,000 mg PO TID Qty: 21 0RF ibuprofen 200 mg tablet 400 mg PO Q8H Qty: 20 0RF No Action Ranitidine Hydrochloride (RANITIDINE) 150 mg PO BID Qty: 0 prednisone 20 mg tablet See Rx Instructions .ROUTE .COMPLEX Qty: 20 0RF Rx Instructions: 60 mg daily for 4 days then 40 mg for 3 days, then 20 mg for 2 days valacyclovir [Valtrex] 1 gram tablet 1,000 mg PO TID Qty: 21 0RF hydrocodone-acetaminophen 5-325 mg tablet 1 tab PO Q6H PRN (Reason: pain) Qty: 10 0RF metformin 500 mg Tablet 1,000 mg PO BID atorvastatin 20 mg Tablet 40 mg PO QPM quetiapine [Seroquel] 200 mg Tablet 200 mg PO DAILY Rx Instructions: 300mg at night gabapentin 800 mg Tablet 1,600 mg PO BID Lantus Solostar U-100 Insulin 100 unit/mL (3 mL) Insulin Pen 27 unit SUBCUT QPM omeprazole 20 mg Capsule,Delayed Release(Dr/Ec) 20 mg PO DAILY Referrals: Yessi Horowitz FNP-C [Primary Care Provider] - Stand Alone Forms: Patient Portal/API/Survey ED Sign-out <Peggy Phillip DO - Last Filed: 06/14/24 07:33> Cosign ED Attending Cosozzyature Attestation: I was immediately available in the department for consultation.
[2024-06-13 13:23] VITALS: BP 165/82; PULSE 90; RESP 14; O2SAT 95
[2024-06-15 11:12] LABS: HSV 1 DNA Negative (Negative); HSV 2 DNA Negative (Negative)
[2024-06-17 14:10] LABS: Varicella Zoster PCR Negative (Negative)
== END 2024-06-13 13:25 | disposition home or self-care (01) ==
PROVIDERS: Emergency Provider Physician Assistant Medical; PCP Registered Nurse
DX: R23.8 Other skin changes (principal); R03.0 Elevated blood-pressure reading, without diagnosis of hypertension
CPT/HCPCS: 87070; 87075; 87205; 87529; 87798; 99281; 99283